=== PATIENT | female | born 1970 | race Caucasian/White ===

== ENCOUNTER → 2016-12-19 | Outpatient (CLI) | payer BC ==
[~2016-12-19] MED LIST: DOCU100C37 PO; IBUP-1780 PO; LEVO50TA PO; OXYC-465 PO; ROSU10TA PO
--- OUTSIDE RECORDS SUMMARY | 2016-12-19 12:30 | XMS REPORT | Continuity of Care Document ---
Author Author [facility] Organization 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 10/08/2015 KAYLEIGH TONY MD Ot N73.6 FEMALE PELVIC PERITONEAL ADHESIONS ( POST 10/08/2015 KAYLEIGH TONY MD, Ot N80.0 ENDOMETRIOSIS OF UTERUS 10/08/2015 KAYLEIGH TONY MD Ot N93.8 OTHER SPECIFIED ABNORMAL UTERINE AND VAG 10/19/2015 KAYLEIGH TONY MD Ot D64.9 10/19/2015 KAYLEIGH TONY MD, Ot N85.8 10/19/2015 KAYLEIGH TONY MD Ot Z01.812 10/19/2015 KAYLEIGH TONY MD Ot Z11.2 11/09/2015 KAYLEIGH TONY MD, Ot Z12.31 05/24/2016 Ot 785.1 PALPITATIONS 05/24/2016 Ot 786.50 CHEST PAIN NOS 05/24/2016 Ot V76.12 OTH SCREEN MAMMO-MALIGN NEOPLASM OF GEE 05/24/2016 KAYLEIGH TONY MD Ot V76.12 OTH SCREEN MAMMO-MALIGN NEOPLASM OF GEE 05/24/2016 KAYLEIGH TONY MD, Ot V76.12 OTH SCREEN MAMMO-MALIGN NEOPLASM OF GEE 05/24/2016 KAYLEIGH TONY MD Ot 793.80 UNSPEC ABNORMAL MAMMOGRAM 05/24/2016 KAYLEIGH TONY MD, Ot Z12.31 ENCNTR SCREEN MAMMOGRAM FOR MALIGNANT NE 05/24/2016 KAYLEIGH TONY MD, Ot D64.9 ANEMIA, UNSPECIFIED 05/24/2016 KAYLEIGH TONY MD, Ot N85.8 OTHER SPECIFIED NONINFLAMMATORY DISORDER 05/24/2016 KAYLEIGH TONY MD, Ot Z01.812 ENCOUNTER FOR PREPROCEDURAL LABORATORY E 05/24/2016 KAYLEIGH TONY MD, Ot Z11.2 ENCOUNTER FOR SCREENING FOR OTHER BACTER 10/25/2016 Ot V76.12 OTH SCREEN MAMMO-MALIGN NEOPLASM OF GEE 10/25/2016 KAYLEIGH TONY MD, Ot V76.12 OTH SCREEN MAMMO-MALIGN NEOPLASM OF GEE 10/25/2016 KAYLEIGH TONY MD Ot V76.12 OTH SCREEN MAMMO-MALIGN NEOPLASM OF GEE 10/25/2016 KAYLEIGH TONY MD Ot 793.80 UNSPEC ABNORMAL MAMMOGRAM 10/25/2016 KAYLEIGH TONY MD, Ot Z12.31 ENCNTR SCREEN MAMMOGRAM FOR MALIGNANT NE 10/25/2016 KAYLEIGH TONY MD, Ot D64.9 ANEMIA, UNSPECIFIED 10/25/2016 KAYLEIGH OTNY MD Ot N85.8 OTHER SPECIFIED NONINFLAMMATORY DISORDER 10/25/2016 KAYLEIGH TONY MD Ot Z01.812 ENCOUNTER FOR PREPROCEDURAL LABORATORY E 10/25/2016 KAYLEIGH TONY MD, Ot Z11.2 ENCOUNTER FOR SCREENING FOR OTHER BACTER 10/26/2016 KAYLEIGH TONY MD, Ot Z12.31 ENCNTR SCREEN MAMMOGRAM FOR MALIGNANT NE 11/07/2016 KAYLEIGH TONY MD, Ot Z12.31 ENCNTR SCREEN MAMMOGRAM FOR MALIGNANT NE Procedures Results Encounters ACCT No. Visit Date/Time Discharge Status Pt. Type Provider Facility Loc./Unit Complaint [id number] 10/07/2015 11:23:00 2014 10:15:00 DIS KAYLEIGH Hinojosa MD [facility] SDC HYSTERECTOMY [id number] 09/27/2014 09:09:00 2013 23:59:59 CLS Outpatient KAYLEIGH TONY MD [facility] RAD ABNORMAL MAMMO [id number] 09/15/2014 09:32:00 2013 23:59:59 CLS Outpatient KAYLEIGH TONY MD [facility] RAD SCREENING [id number] 09/15/2013 08:28:00 2012 23:59:59 CLS Outpatient KAYLEIGH TONY MD [facility] RAD SCREENING [id number] 10/25/2016 09:33:00 ACT Outpatient KAYLEIGH TONY MD [facility] RAD SCREENING [id number] 10/25/2015 08:59:00 ACT Outpatient KAYLEIGH TONY MD [facility] RAD ROUTINE MAMMOGRAM SCREENING [id number] 10/03/2015 12:43:00 ACT Outpatient KAYLEIGH TONY MD [facility] PREOP UTERINE MASS [id number] 09/10/2012 09:08:00 Document Registration [id number] 12/27/2010 12:56:00 Document Registration
--- NOTE | 2016-12-19 19:19 | Diagnostic Imaging Report ---
EXAMINATION: Unilateral Diagnostic left mammogram. INDICATION: Left breast lump. The current study was also evaluated with a Computer Aided Detection (CAD) system. FINDINGS: In the interval since the recent screening mammogram of 10/25/2016, the patient has developed a small palpable abnormality in the lateral aspect of the left breast. A marker was placed at the area of concern. On this exam, there is no abnormality evident in this region. There is no primary or secondary sign of malignancy noted. The implant appears stable when compared to the prior study. IMPRESSION: There is no abnormality to account for the patient's palpable mass. Ultrasound would be recommended for further study. ACR BI-RADS Category 0: Incomplete. (Needs additional imaging evaluation). Result letter will be mailed to the patient. Note: At least 10% of breast cancer is not imaged by mammography. Dictated by: Dictated on workstation # [id number]
--- NOTE | 2016-12-19 19:21 | Diagnostic Imaging Report ---
Ultrasound left breast. INDICATION: Left breast lump. FINDINGS: By history, the patient has a palpable abnormality in the lateral aspect of the left breast. The diagnostic mammogram performed earlier today failed to show any sign of malignancy in this region. On this exam, there is no discrete solid or cystic mass evident. The implant, where visualized is intact. IMPRESSION: There is no discrete solid or cystic mass near the patient's palpable abnormality. If clinical concern regarding an underlying abnormality persists, however, then biopsy should still be considered. ACR BI-RADS Category 1: Negative. Dictated by: Dictated on workstation # [id number]
== END ==
LOC: RAD 12:27
PROVIDERS: ATTEND Obstetrics & Gynecology
DX: N63 Unspecified lump in breast (principal)
CPT/HCPCS: 76642

== ENCOUNTER → 2017-10-17 | Outpatient (CLI) | payer BC ==
--- NOTE | 2017-10-18 11:31 | Diagnostic Imaging Report ---
Bilateral screening mammogram 2D views with tomosynthesis The current study was also evaluated with a Computer Aided Detection (CAD) system. Indication: Screening. No current complaints stated on the questionnaire. COMPARISON: 12/19/2016. Findings: The breasts are composed of suggested dense parenchyma which may decrease mammographic sensitivity. Bilateral symmetric implants are again seen without change. Allowing for technique and positional differences, no suspicious change is seen. IMPRESSION: No significant change. ACR BI-RADS Category 2: Benign findings. Result letter will be mailed to the patient. Note: At least 10% of breast cancer is not imaged by mammography. Dictated by: Dictated on workstation # [id number]
== END ==
LOC: RAD 14:04
PROVIDERS: ATTEND Obstetrics & Gynecology
DX: Z12.31 Encounter for screening mammogram for malignant neoplasm of breast (principal)
CPT/HCPCS: 77067

== ENCOUNTER → 2018-04-16 | Outpatient (CLI) | payer BC | LOC: CARD 12:52 | PROVIDERS: ATTEND Internal Medicine Cardiovascular Disease | DX: R07.89 Other chest pain (principal); I10 Essential (primary) hypertension; E78.2 Mixed hyperlipidemia; R00.2 Palpitations; I07.1 Rheumatic tricuspid insufficiency | CPT/HCPCS: 93017; 93306 ==

== ENCOUNTER 2018-10-27 05:34 | Outpatient (CLI) | payer BC ==
[~2018-10-27] VITALS: Ht 167.6 cm; Wt 75.7 kg
[2018-10-27] MEDS ORDERED: BUSP10TA95 PO (10:25)
[2018-10-27] MEDS ORDERED: NORG1TAB81 PO (10:25)
[2018-10-27] MEDS ORDERED: METO-352 PO (10:25)
[2018-10-27] MEDS ORDERED: ESCI10TA PO (10:25)
[2018-10-30] MEDS ORDERED: HYDR-3816 PO (08:26)
== END 2018-10-27 10:52 | disposition home or self-care (01) ==
LOC: PREOP 05:34
PROVIDERS: ATTEND Surgery
DX: Z01.818 Encounter for other preprocedural examination (principal)

== ENCOUNTER → 2019-10-20 | Outpatient (CLI) | payer BC ==
[~2019-10-20] MED LIST changes: +BUSP10TA95 PO; +ESCI10TA PO; +HYDR-3816 PO; +METO-352 PO; +NORG1TAB19 PO; -ROSU10TA PO; +ROSU10TA22 PO; +ROSU20TA32 PO
--- NOTE | 2019-10-20 11:59 | Diagnostic Imaging Report ---
INDICATION: Routine screening. Comparison is made with prior mammograms from 10/17/2017 and 10/25/2016. 2-D and 3-D bilateral screening mammography was performed with CAD. Bilateral breast implants are again noted. Scattered fibroglandular densities are identified bilaterally. Implant contours appear to be stable. No mass or malignant appearing microcalcifications are seen. The axillae are unremarkable. IMPRESSION: BI-RADS Category 2 No mammographic features suspicious for malignancy are identified. ACR BI-RADS Category 2: Benign findings. Result letter will be mailed to the patient. Note: At least 10% of breast cancer is not imaged by mammography. Dictated by: Dictated on workstation # [id number]
== END ==
LOC: RAD 09:41
PROVIDERS: ATTEND Nurse Practitioner
DX: Z12.31 Encounter for screening mammogram for malignant neoplasm of breast (principal)
CPT/HCPCS: 77067

== ENCOUNTER 2019-10-23 05:32 | Outpatient (CLI) | payer BC ==
[~2019-10-23] VITALS: Ht 167 cm; Wt 79.5 kg
[~2019-10-23 05:32] MED LIST changes: -ROSU20TA32 PO
[2019-10-23] MEDS ORDERED: ROSU20TA32 PO (10:42)
== END 2019-10-23 10:45 | disposition home or self-care (01) ==
LOC: PREOP 05:32
PROVIDERS: ATTEND Internal Medicine
DX: Z01.818 Encounter for other preprocedural examination (principal)

== ENCOUNTER 2019-10-30 08:26 | Day surgery (SDC) | payer BC ==
--- NOTE | 2019-10-20 09:47 | HISTORY AND PHYSICAL ---
DATE OF SERVICE: COLONOSCOPY HISTORY AND PHYSICAL HISTORY OF PRESENT ILLNESS: The patient is a 48-year-old white female referred for screening colonoscopy. She had some pigmented lesions on her retina that had been associated with colonic polyposis and slight increased cancer risk. It was noted by her career technical education teacher and she is being referred for screening a few years earlier. She also sees Dr. Diaz who actually made the referral. She denies any problems with bright red blood per rectum or melena. Denies abdominal pain or any symptoms suggesting irritable bowel syndrome. She denies abdominal distention or bowel habit change. FAMILY HISTORY: Mother is living at the age of 69 with no health problems. Father living at the age of 70 with history of type 2 diabetes and atrial fibrillation. She is not aware of any family history for GI tract malignancy including colon cancer. PAST SURGICAL HISTORY: She had a laparoscopic-assisted vaginal hysterectomy with bilateral salpingo-oophorectomy in 2016. She has had three sections in the past. SOCIAL HISTORY: She is . 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 MEDICATIONS: Include Synthroid 0.05 mg daily, Crestor 20 mg daily, Previfem daily, Lexapro 10 mg daily, and Toprol-XL 50 mg daily. ALLERGIES: SHE REPORTS HISTORY OF ALLERGY TO SULFA, WHICH CAUSES A RASH. REVIEW OF SYSTEMS: CONSTITUTIONAL: She denies night sweats, chills, fever or change in weight. CARDIOVASCULAR: She denies chest pain, orthopnea, PND, pedal edema or dyspnea on exertion. PULMONARY: She denies cough or wheezing. PHYSICAL EXAMINATION: GENERAL: Reveals a well-appearing white female in no acute distress. Weight 178.4 pounds. VITAL SIGNS: Blood pressure 128/80. HEENT: Unremarkable. Mallampati class 2 pharyngeal configuration. CHEST: Clear to auscultation. CARDIOVASCULAR: Reveals regular rate and rhythm without murmur, S3 or S4. ABDOMEN: Soft, supple without mass, organomegaly or tenderness. Bowel sounds are positive. No bruits noted. EXTREMITIES: Reveal no cyanosis, clubbing or edema. ASSESSMENT AND PLAN: The patient was set up for screening colonoscopy on 10/31/2019. Prep instructions with the Suprep kit were given and questions were answered. I thank you for the referral of this pleasant lady. Job ID: [id number] DocumentID: [id number] Dictated Date: 10/12/2019 17:40:27 Top Lift Compressor Date: 10/12/2019 18:02:45 Dictated By: JANES MEJIA MD
[~2019-10-30] VITALS: Ht 167.7 cm; Wt 79.5 kg
[~2019-10-30 08:26] MED LIST changes: +ROSU20TA32 PO
[2019-10-30] MEDS ORDERED: LACTATED RINGERS 1,000 ML IV ONE (08:29)
[2019-10-30] MEDS ORDERED: LACTATED RINGERS 1,000 ML IV STA (08:38)
[2019-10-30 08:40] VITALS: BP 142/87
[2019-10-30] MEDS ORDERED: LIDOCAINE JELLY 2% 6 ML SYRINGE MM PRN (08:45)
[2019-10-30] MEDS ORDERED: PROPOFOL INJECTION 50 ML IV ONE ×2 (09:12→10:06)
[2019-10-30] MEDS ORDERED: MIDAZOLAM 2 MG/2 ML (VERSED) VIAL ONE (09:13)
[2019-10-30 10:30] VITALS: BP 110/64
[2019-10-30 10:35] VITALS: BP 110/63
[2019-10-30 10:40] VITALS: BP 112/65
[2019-10-30 10:45] VITALS: BP 112/65
--- NOTE | 2019-10-30 10:46 | Pre-Op Note & Conscious Sedat ---
Pre-Operative Progress Note H&P Reviewed The H&P was reviewed, patient examined and no changes noted. Date H&P Reviewed: Oct 30, 2019 Time H&P Reviewed: 10:05 Conscious Sedation Pre-Proced ASA Score 2 For ASA 3 and 4: Consider anesthesia and medical clearance. Also, for patients with a history of failed moderate sedation consider anesthesia. Airway Lungs Heart ASA score ASA 1: a normal healthy patient ASA 2: a patient with a mild systemic disease (mid diabetes, controlled hypertension, obesity ASA 3: a patient with a severe systemic disease that limits activity (angina, COPD, prior Myocardial infarction) ASA 4: a patient with an incapacitating disease that is a constant threat to life (CHF, renal failure) ASA 5: a moribund patient not expected to survive 24 hrs. (ruptured aneurysm) ASA 6: a declared brain- patient whose organs are being harvested. For emergent operations, add the letter E after the classification Mallampati Classification Grade 1 Sedation Plan Analgesia, Amnesia, Plan communicated to team members, Discussed options with patient/fam, Discussed risks with patient/fam The patient is an appropriate candidate to undergo the planned procedure, sedation, and anesthesia. The patient immediately re-assessed prior to indication. JANES MEJIA MD Oct 30, 2019 10:46
[2019-10-30 11:07] VITALS: BP 112/68
--- NOTE | 2019-10-30 14:11 | Anesthesia-General Post-Op ---
MAC Patient Condition Mental Status/LOC: Same as Preop Cardiovascular: Satisfactory Nausea/Vomiting: Absent Respiratory: Satisfactory Pain: Controlled Complications: Absent Post Op Complications Complications None Follow Up Care/Instructions Patient Instructions None needed. Anesthesiology Discharge Order Discharge Order Patient is doing well, no complaints, stable vital signs, no apparent adverse anesthesia problems. No complications reported per nursing. LARRY LINK CRNA Oct 30, 2019 14:11
--- NOTE | 2019-10-30 15:11 | OPERATIVE REPORT ---
DATE OF SERVICE: COLONOSCOPY SUMMARY INDICATION FOR THE PROCEDURE: Screening colonoscopy. DESCRIPTION OF PROCEDURE: The patient was placed in the left lateral decubitus position. Prior to undergoing colonoscopy, digital rectal evaluation was performed. Anal sphincter tone was normal and the perianal reflexes intact. No abnormalities were noted on digital inspection of anal canal or distal rectal vault. The colonoscope was then inserted into the rectum and under direct visualization advanced to the cecum. The cecum was identified by identification of ileocecal valve and cecal strap. Photographic documentation was obtained. Careful inspection was made as colonoscope withdrawn. Quality of prep was good. FINDINGS: There was no evidence for internal or external hemorrhoids. The rectum, sigmoid colon, descending colon, splenic flexure, transverse colon, hepatic flexure, ascending colon and cecum were unremarkable with no evidence for neoplasia or diverticular disease. ASSESSMENT: Normal colonoscopy to the cecum. The patient and her mother were not aware of any family history for colon polyps or cancer, so would advocate consideration for repeat screening colonoscopy in 10 years. I thank you for the referral of this pleasant lady. Job ID: [id number] DocumentID: [id number] Dictated Date: 10/30/2019 11:01:51 Plan Coordinator Date: 10/30/2019 15:11:29 Dictated By: JANES MEJIA MD MTDD
== END 2019-10-30 11:15 ==
LOC: ENDO 08:26
PROVIDERS: ATTEND Internal Medicine
DX: Z12.11 Encounter for screening for malignant neoplasm of colon (principal); E78.5 Hyperlipidemia, unspecified; F32.9 Major depressive disorder, single episode, unspecified; Z90.710 Acquired absence of both cervix and uterus; Z87.891 Personal history of nicotine dependence; Z79.899 Other long term (current) drug therapy; Z82.49 Family history of ischemic heart disease and other diseases of the circulatory system; Z83.3 Family history of diabetes mellitus

== ENCOUNTER → 2020-01-11 | Outpatient (CLI) | payer BC ==
[~2020-01-11] VITALS: Ht 167.7 cm; Wt 79.5 kg
[~2020-01-11] MED LIST changes: +GADOBUTROL 7.5 MMOL/7.5 ML (GADAVIST) VIAL IV ONE; +HYDR-34 PO; -HYDR-3816 PO; +IOHEXOL 300 MG/ML 50 ML (OMNIPAQUE 300) VIAL IV ONE
--- NOTE | 2020-01-11 13:34 | Diagnostic Imaging Report ---
INDICATION: Left shoulder pain. Patient was brought to the procedure room and placed on table in the supine position. Skin over the left shoulder was prepped and draped in the usual sterile fashion. A small amount of 1% lidocaine was utilized for local anesthesia. A 21-gauge needle was advanced into the left shoulder at the rotator interval. 15 mL solution of iodinated contrast, normal saline, and gadolinium was injected under fluoroscopic observation. Needle was withdrawn, and hemostasis was obtained. Patient tolerated the procedure well and was sent to MRI in satisfactory condition. 13 seconds of fluoroscopic time was utilized. IMPRESSION: Successful left shoulder injection of gadolinium contrast solution, using fluoroscopy. Dictated by: Dictated on workstation # [id number]
--- NOTE | 2020-01-11 14:23 | Diagnostic Imaging Report ---
PROCEDURE: MRI left joint upper extremity with contrast. TECHNIQUE: Multiplanar, multisequence intra-articular contrast-enhanced MRI of the left shoulder was accomplished. INDICATION: Left shoulder pain. Superior glenoid labrum lesion. COMPARISON: None. FINDINGS: No acute fracture or dislocation is seen in the left shoulder. Subcortical cystlike changes are seen in the lateral humeral head, may be degenerative. There is contrast in the glenohumeral joint. There is a high-grade partial-thickness tear of the infraspinatus tendon at the insertion which is small, measuring approximately 8 mm in width. No other high-grade partial-thickness or full-thickness tears are seen in the left rotator cuff. There is no muscular atrophy. The long head of the biceps tendon appears normal in course and signal. The glenoid labrum demonstrates irregularity posteriorly with no displacement. There is a sublabral foramen at the superior anterior aspect of the glenoid. No paralabral cyst is seen. The acromion has a curved undersurface without hooking. The coracoclavicular and coracoacromial ligaments are intact. The soft tissues about the left shoulder are otherwise unremarkable. IMPRESSION: 1. Small high-grade partial thickness tear at the insertion of the left infraspinatus tendon. No muscular atrophy. 2. Mild irregularity of the posterior glenoid labrum. No para labral cyst is seen. Dictated by: Dictated on workstation # [id number]
== END ==
LOC: RAD 12:17
PROVIDERS: ATTEND Orthopaedic Surgery
DX: S43.432A Superior glenoid labrum lesion of left shoulder, initial encounter (principal); M75.102 Unspecified rotator cuff tear or rupture of left shoulder, not specified as traumatic
CPT/HCPCS: 23350; 73040; 73222

== ENCOUNTER → 2020-12-06 | Outpatient (CLI) | payer BC ==
[~2020-12-06] MED LIST changes: -GADOBUTROL 7.5 MMOL/7.5 ML (GADAVIST) VIAL IV ONE; -IOHEXOL 300 MG/ML 50 ML (OMNIPAQUE 300) VIAL IV ONE; -OXYC-465 PO; +OXYC-556 PO
--- NOTE | 2020-12-06 11:40 | Diagnostic Imaging Report ---
INDICATION: Routine screening. COMPARISON: 10/20/2019 and 10/17/2017. TECHNIQUE: 2D and 3D bilateral screening mammography was performed with CAD. FINDINGS: Bilateral breast implants are again noted. The implant contours appear stable. No definite evidence of extracapsular rupture is seen. Scattered fibroglandular densities are noted bilaterally. The parenchymal pattern is stable. No mass or malignant appearing microcalcifications are seen. The axillae are unremarkable. IMPRESSION: No mammographic features suspicious for malignancy are identified. ACR BI-RADS Category 2: Benign findings. Result letter will be mailed to the patient. Note: At least 10% of breast cancer is not imaged by mammography. Dictated by: Dictated on workstation # [id number]
== END ==
LOC: RAD 08:45
PROVIDERS: ATTEND Obstetrics & Gynecology
DX: Z12.31 Encounter for screening mammogram for malignant neoplasm of breast (principal)
CPT/HCPCS: 77063; 77067

== ENCOUNTER → 2022-08-14 | Outpatient (CLI) | payer BC ==
[~2022-08-14] MED LIST changes: +NF-CRES10T PO; -ROSU10TA22 PO
--- NOTE | 2022-08-14 14:53 | Diagnostic Imaging Report ---
Indication: Routine screening. Comparison is made with prior mammogram 12/06/2020 and 10/20/2019. 2-D and 3-D bilateral screening mammography was performed with CAD. CAD is utilized. The current study was also evaluated with a Computer Aided Detection (CAD) system. Bilateral breast implants are again noted. Implant contours appear smooth and stable. There is no definite evidence of extracapsular rupture. Scattered breast parenchymal density is noted bilaterally. No mass or malignant-appearing microcalcifications are seen. Axillae are unremarkable. IMPRESSION: BI-RADS Category 2 No mammographic features suspicious for malignancy are identified. ACR BI-RADS Category 2: Benign findings. Result letter will be mailed to the patient. Note: At least 10% of breast cancer is not imaged by mammography. Dictated by: Dictated on workstation # [id number]
== END ==
LOC: RAD 09:15
PROVIDERS: ATTEND Nurse Practitioner
DX: Z12.31 Encounter for screening mammogram for malignant neoplasm of breast (principal)
CPT/HCPCS: 77063; 77067

== ENCOUNTER 2023-01-15 03:49 | Emergency (ER) | payer BC ==
[~2023-01-15] VITALS: Ht 167.7 cm; Wt 74.5 kg
--- NOTE | 2023-01-15 04:57 | ED Headache ---
General Chief Complaint: Head/Cervical Problems Stated Complaint: SCHMITZ Nursing Triage Note: reports waking up approx. 0030 with "pounding headache" reports drinking wine prior to going to bed. 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 Source: patient Exam Limitations: no limitations History of Present Illness Date Seen by Provider: Jan 15, 2023 Time Seen by Provider: 04:44 Initial Comments This 52-year-old woman presents to the emergency room with intense headache that started between 0030 and 0100 she had a couple glasses of wine with friends this evening. She then went to bed without issue. She woke and walked to the kitchen. When she went back to bed and laid down she developed severe headache. This headache was unusual for her and more intense than normal. She tried to take ibuprofen but believes she lost it when vomiting. She also took a dose of her son's Maxalt. She denies any neurologic deficits. She took 1 Zofran 4 mg sublingually at home but that did not resolve her nausea. She still feels nauseous and has a rather intense headache during the interview. She does mention a family history of aneurysm and states her mother is concerned about that as a possibility. Allergies and Home Medications Allergies Coded Allergies: Sulfa (Sulfonamide Antibiotics) (Verified Allergy, Intermediate, RASH, 10/30/18) Patient Home Medication List Home Medication List Reviewed: Yes Escitalopram Oxalate (Lexapro) 10 Mg Tablet, 10 MG PO HS, (Reported) Entered as Reported by: TASNEEM MARTIN on 10/27/18 1025 Last Action: Last Taken Edited Levothyroxine Sodium (Synthroid) 50 Mcg Tablet, 50 MCG PO DAILY, (Reported) Entered as Reported by: AUGUSTINA HAJI on 10/03/15 1306 Last Action: Last Taken Edited Metoprolol Succinate (Toprol Xl) 50 Mg Tab.er.24h, 50 MG PO DAILY, (Reported) Entered as Reported by: TASNEEM MARTIN on 10/27/18 1025 Last Action: Last Taken Edited Norgestimate-Ethinyl Estradiol (Previfem Tablet) 1 Each Tablet, 1 EACH PO DAILY, (Reported) Entered as Reported by: TASNEEM MARTIN on 10/27/18 1025 Last Action: Last Taken Edited Rosuvastatin Calcium (Rosuvastatin Calcium) 20 Mg Tablet, 20 MG PO DAILY, (Reported) Entered as Reported by: TASNEEM MARTIN on 10/23/19 1042 Last Action: Last Taken Edited Review of Systems Review of Systems Constitutional: no symptoms reported Eyes: No Symptoms Reported Ears, Nose, Mouth, Throat: no symptoms reported Respiratory: no symptoms reported Cardiovascular: no symptoms reported Gastrointestinal: see HPI Genitourinary: no symptoms reported : No Musculoskeletal: no symptoms reported Skin: no symptoms reported Psychiatric/Neurological: See HPI Past Vkoewvk-Yiosnp-Bhovab Hx Patient Social History Tobacco Use?: No Substance use?: No Alcohol Use?: Yes Alcohol type: Wine Alcohol Frequency: Once in a while Pt feels they are or have been: No Immunizations Up To Date First/Initial COVID19 Vaccinat: x3 Seasonal Allergies Seasonal Allergies: No Past Medical History Surgery/Hospitalization HX: hypothryoidism, high cholesterol, htn, depression x3, hysterectomy, d&c Surgeries: Yes (D&C, DXLS, C/S X3, BREAST AUGMENTATION, BREAST BX) Section, Hysterectomy, Oophorectomy Respiratory: No Cardiac: Yes High Cholesterol, Hypertension Neurological: Yes Headaches /Migraines : No Reproductive Disorders: No 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 Sexually Transmitted Disease: No HIV/AIDS: No Genitourinary: No Gastrointestinal: No Musculoskeletal: No Endocrine: Yes Hypothyroidsim HEENT: Yes (CONTACTS/GLASSES) Loss of Vision: Bilateral Hearing Impairment: Denies Cancer: No Psychosocial: Yes Anxiety Integumentary: No Blood Disorders: No Adverse Reaction/Blood Tranf: No (N/A) Family Medical History Diabetes mellitus 19 FATHER Physical Exam Vital Signs Vital Signs - First Documented 01/15/23 04:03 Temp 36.9 Pulse 74 Resp 16 B/P (MAP) 141/100 (114) Pulse Ox 99 O2 Delivery Room Air Capillary Refill : Less Than 3 Seconds Height, Weight, BMI Height: 5'6.00" Weight: 170lbs. 0.0oz. 77.301026va; 26.00 BMI Method: General Appearance: WD/WN, mild distress HEENT: PERRL/EOMI, normal ENT inspection, TMs normal, pharynx normal Neck: normal inspection Cardiovascular: regular rate, rhythm, no edema, no murmur Respiratory: lungs clear, normal breath sounds, no respiratory distress Extremities: normal inspection Psychiatric: alert, oriented x 3 Crainal Nerves: normal hearing, normal speech, PERRL Motor/Sensory: no motor deficit Skin: normal color, warm/dry Progress/Results/Core Measures Results/Orders Lab Results Laboratory Tests Test 01/15/23 05:03 Range/Units White Blood Count 8.4 4.3-11.0 10^3/uL Red Blood Count 4.47 3.80-5.11 10^6/uL Hemoglobin 13.6 11.5-16.0 g/dL Hematocrit 40 35-52 % Mean Corpuscular Volume 90 80-99 fL Mean Corpuscular Hemoglobin 30 25-34 pg Mean Corpuscular Hemoglobin Concent 34 32-36 g/dL Red Cell Distribution Width 13.3 10.0-14.5 % Platelet Count 323 130-400 10^3/uL Mean Platelet Volume 10.5 9.0-12.2 fL Immature Granulocyte % (Auto) 0 % Neutrophils (%) (Auto) 70 42-75 % Lymphocytes (%) (Auto) 21 12-44 % Monocytes (%) (Auto) 5 0-12 % Eosinophils (%) (Auto) 3 0-10 % Basophils (%) (Auto) 1 0-10 % Neutrophils # (Auto) 5.9 1.8-7.8 10^3/uL Lymphocytes # (Auto) 1.8 1.0-4.0 10^3/uL Monocytes # (Auto) 0.5 0.0-1.0 10^3/uL Eosinophils # (Auto) 0.2 0.0-0.3 10^3/uL Basophils # (Auto) 0.0 0.0-0.1 10^3/uL Immature Granulocyte # (Auto) 0.0 0.0-0.1 10^3/uL Sodium Level 142 135-145 MMOL/L Potassium Level 4.0 3.6-5.0 MMOL/L Chloride Level 103 98-107 MMOL/L Carbon Dioxide Level 25 21-32 MMOL/L Anion Gap 14 5-14 MMOL/L Blood Urea Nitrogen 14 7-18 MG/DL Creatinine 0.78 0.60-1.30 MG/DL Estimat Glomerular Filtration Rate 92 BUN/Creatinine Ratio 18 Glucose Level 116 H 70-105 MG/DL Calcium Level 9.5 8.5-10.1 MG/DL Magnesium Level 1.8 1.6-2.4 MG/DL My Orders Orders - YUSEF FERRIS MD Ed Iv/Invasive Line Start (01/15/23 04:54) Lactated Ringers (Lr 1000 Ml Iv Solution (01/15/23 05:00) Basic Metabolic Panel (01/15/23 04:54) Cbc With Automated Diff (01/15/23 04:54) Magnesium (01/15/23 04:54) Fentanyl Inj (Sublimaze Injection) (01/15/23 05:00) Ondansetron Injection (Zofran Injectio (01/15/23 05:00) Ct Head Wo (01/15/23 04:54) Ketorolac Injection (Toradol Injection) (01/15/23 07:00) Medications Given in ED Vital Signs/I&O 01/15/23 01/15/23 04:03 07:38 Temp 36.9 36.3 Pulse 74 75 Resp 16 16 B/P (MAP) 141/100 (114) 137/79 Pulse Ox 99 100 O2 Delivery Room Air Room Air Blood Pressure Mean: 114 Progress Progress Note : Time: 05:42 Progress Note Patient was treated with fentanyl, Zofran, and IV fluids. Labs including CBC, BMP, and magnesium were reviewed in their entirety and were unremarkable. CT of the head was obtained and reviewed by me. No acute abnormalities were appreciated by my interpretation. The statrad radiologist's interpretation is still pending. Diagnostic Imaging Diagonstic Imaging: CT Plain Films/CT/US/NM/MRI: head Comments NAME: RBIELLE ARAUZ Brittny [facility] REC#: [id number] PT STATUS: DEP ER : 1970 PHYSICIAN: YUSEF FERRIS MD ADMIT DATE: 01/15/23/ER Signed Date of Exam:01/15/23 CT HEAD WO Procedure: CT head without contrast. Technique: Multiple contiguous axial images were obtained through the brain without the use of intravenous contrast. Auto Exposure Controls were utilized during the CT exam to meet ALARA standards for radiation dose reduction. Date: January 15, 2023 Comparison: None Indication: 52-year-old female, severe headache. Findings: The ventricles and additional CSF spaces are normal in size and configuration for patient age. There is no identified abnormal extra-axial fluid collection. There is no evidence of acute intracranial hemorrhage. There is no mass effect or midline shift. The visualized portions of the paranasal sinuses, mastoid air cells, and middle ears are well aerated. Impression: 1. No identified acute intracranial abnormality. Dictated by: Dictated on workstation # [id number] Dict: 01/15/2314 Trans: 01/15/2307 [facility] [id number] Interpreted by: REBECCA PRAKASH MD Electronically signed by: REBECCA PRAKASH MD 01/15/23 0807 Departure Impression Primary Impression: Acute headache Qualified Codes: R51.9 - Headache, unspecified Additional Impression: Nausea & vomiting Qualified Codes: R11.2 - Nausea with vomiting, unspecified Disposition: 01 HOME, SELF-CARE Condition: Improved Departure-Patient Inst. Decision time for Depature: 07:22 Referrals: NATAN NAJERA (PCP/Family) Primary Care Physician Patient Instructions: Headache, Adult ED Add. Discharge Instructions: Drink plenty of clear liquids to stay well-hydrated. You may treat further pain with ibuprofen up to 600 mg every 6 hours and/or Tylenol (acetaminophen) up to 1000 mg every 6 hours as needed. Try to rest in a quiet, calm environment for the rest of the morning. You may use your Zofran to treat any rebound nausea or vomiting. Use as previously prescribed. Return to care if you have worsening symptoms despite following these instructions. All discharge instructions reviewed with patient and/or family. Voiced understanding. YUSEF FERRIS MD Jan 15, 2023 04:57
[2023-01-15] MEDS ORDERED: ONDANSETRON 4 MG/2 ML (SDV) Z0FRAN IVP ONE (05:00)
[2023-01-15] MEDS ORDERED: LACTATED RINGERS 1,000 ML IV ONE (05:00)
[2023-01-15] MEDS ORDERED: fentaNYL INJ 100 MCG/2 ML AMP IVP ONE (05:00)
[2023-01-15 05:25] LABS: BASOPHILS % (AUTO) 1 % (0-10); EOSINOPHILS # (AUTO) 0.2 10^3/uL (0.0-0.3); EOSINOPHILS % (AUTO) 3 % (0-10); HEMATOCRIT 40 % (35-52); HEMOGLOBIN 13.6 g/dL (11.5-16.0); LYMPHOCYTES # (AUTO) 1.8 10^3/uL (1.0-4.0); LYMPHOCYTES % (AUTO) 21 % (12-44); MEAN CORPUSCULAR HEMOGLOBIN 30 pg (25-34); MEAN CORPUSCULAR HGB CONC 34 g/dL (32-36); MEAN CORPUSCULAR VOLUME 90 fL (80-99); MEAN PLATELET VOLUME 10.5 fL (9.0-12.2); MONOCYTES # (AUTO) 0.5 10^3/uL (0.0-1.0); MONOCYTES % (AUTO) 5 % (0-12); NEUTROPHILS # (AUTO) 5.9 10^3/uL (1.8-7.8); NEUTROPHILS % (AUTO) 70 % (42-75); PLATELET COUNT 323 10^3/uL (130-400); WHITE BLOOD COUNT 8.4 10^3/uL (4.3-11.0)
[2023-01-15 05:40] LABS: CALCIUM 9.5 MG/DL (8.5-10.1)
[2023-01-15 05:45] LABS: CREATININE SERUM 0.78 MG/DL (0.60-1.30)
[2023-01-15 05:47] LABS: MAGNESIUM 1.8 MG/DL (1.6-2.4)
--- NOTE | 2023-01-15 06:47 | Diagnostic Imaging Report ---
Procedure: CT head without contrast. Technique: Multiple contiguous axial images were obtained through the brain without the use of intravenous contrast. Auto Exposure Controls were utilized during the CT exam to meet ALARA standards for radiation dose reduction. Date: January 15, 2023 Comparison: None Indication: 52-year-old female, severe headache. Findings: The ventricles and additional CSF spaces are normal in size and configuration for patient age. There is no identified abnormal extra-axial fluid collection. There is no evidence of acute intracranial hemorrhage. There is no mass effect or midline shift. The visualized portions of the paranasal sinuses, mastoid air cells, and middle ears are well aerated. Impression: 1. No identified acute intracranial abnormality. Dictated by: Dictated on workstation # [id number]
[2023-01-15] MEDS ORDERED: KETOROLAC 30 MG/ML VIAL IVP ONE (07:00)
[2023-01-15 07:38] VITALS: BP 137/79
== END 2023-01-15 07:38 | disposition home or self-care (01) ==
LOC: EDUNIT# 03:49 → ER 03:52
DX: R51.9 Headache, unspecified (principal); R11.2 Nausea with vomiting, unspecified; I10 Essential (primary) hypertension; Z28.310 Unvaccinated for COVID-19
CPT/HCPCS: 36415; 70450; 80048; 83735; 85025